=== PATIENT | female | born 1950 | race Caucasian/White ===

== ENCOUNTER 2018-01-28 13:31 | Emergency (ER) | payer MEDICARE, OTHER ==
[2018-01-28 13:36] VITALS: BP 193/77; PULSE 79; RESP 16; TEMP 98.3; O2SAT 98
--- NOTE | 2018-01-28 14:14 | RADRPT ---
EXAM DATE/TIME: 01/28/2018 13:54 [place] COMPARISON: No previous studies available for comparison. INDICATIONS : Heavy board fell on right lower leg today, injury anterior right lower leg appoximately 1/2 way betwe en knee and ankle MEDICAL HISTORY : None. SURGICAL HISTORY : None. ENCOUNTER: Initial ACUITY: 1 day PAIN SCORE: 10/10 LOCATION: Right tib/fib FINDINGS: Two view examination of the right tibia demonstrates no evidence of fracture or dislocation. Bony mi neralization is normal. Soft tissue laceration anteriorly. No foreign body. CONCLUSION: Soft tissue laceration, negative for fracture or foreign body. Niko Mckee MD FACR on January 28, 2018 at 14:11 Board Certified Radiologist. This report was verified electronically.
[2018-01-28] MEDS ORDERED: LEVO75TA3 PO (14:52)
[2018-01-28] MEDS ORDERED: ADVA250A INH (14:52)
[2018-01-28] MEDS ORDERED: LISI20TA PO (14:52)
[2018-01-28] MEDS ORDERED: LIDOCAINE 1%/EPINEPHrine 1:100,000 SOLN 20 ML VIAL INFIL ONE (15:00)
[2018-01-28] MEDS ORDERED: TETANUS/DIPHTHERIA TOXOID ADULT 0.5 ML VIAL IM ONE (15:00)
[2018-01-28] MEDS ORDERED: CEPH-460 PO (15:50)
--- NOTE | 2018-01-28 15:52 | PD ---
HPI Chief Complaint: Laceration/Skin Injury Time Seen by Provider: 14:48 Travel History International Travel<30 days: No Contact w/Intl Traveler<30days: No History of Present Illness HPI 68 year-old female presents to the ED for evaluation of right leg laceration and pain after a 4 x 4 fell on her leg just prior to arrival. Patient states pain is 2/10, worse when she pushes on it or walks. Denies loss of range of motion. Patient's was with her when it happened and he compressed the wound and elevated her leg while waiting for paramedics. When the paramedics got there, they dressed the wound and brought her to the ED. She is not on any blood thinners. Only history of hypertension and hypothyroidism. Unknown last tetanus. [facility] Social History Tobacco Use: No Allergies-Medications (Allergen,Severity, Reaction): Coded Allergies: codeine (Verified Allergy, Severe, 01/28/18) Reported Meds & Prescriptions Reported Meds & Active Scripts Active Keflex (Cephalexin) 500 Mg Capsule 500 Mg PO Q6H 7 Days Reported Advair Diskus Inh (Fluticasone-Salmeterol Inh) 250-50 Mcg/Blist Aer 1 Puff INH BID Rinse mouth after use. Lisinopril-Hctz 20-12.5 Mg Tab 1 Tab PO DAILY Levothyroxine (Levothyroxine Sodium) 75 Mcg Tab 75 Mcg PO DAILY Review of Systems Except as stated in HPI: all other systems reviewed are Neg Physical Exam Narrative GENERAL: Well-nourished, well-developed female no acute distress. Afebrile. Ambulatory. SKIN: Focused skin assessment warm/dry. There is an extremely large, approximately 20 cm L-shaped gaping laceration with significant adipose tissue sticking out of the wound on the right lower extremity. Nonbleeding. HEAD: Normocephalic. EYES: No scleral icterus. No injection or drainage. NECK: Supple, trachea midline. No JVD or lymphadenopathy. CARDIOVASCULAR: Regular rate and rhythm without murmurs, gallops, or rubs. RESPIRATORY: Breath sounds equal bilaterally. No accessory muscle use. MUSCULOSKELETAL: No cyanosis, or edema. 2+ dorsalis pedis pulse. Full range of motion of the right lower extremity. Strength 5/5 and equal in bilateral lower extremity's. Data Data Last Documented VS Vital Signs Date Time Temp Pulse Resp B/P (MAP) Pulse Ox O2 Delivery O2 Flow Rate FiO2 01/28/18 13:36 98.3 79 16 193/77 (115) 98 Orders Orders Tibia/Fibula (Ap/Lat) (01/28/18 ) Tetanus/Diphtheria Tox Adult (Tetanus/Di (01/28/18 15:00) Lidocai-Epi 1%-1:100,000 Inj (Xylocaine- (01/28/18 15:00) Ed Discharge Order (01/28/18 15:52) MDM Medical Decision Making Medical Screen Exam Complete: Yes Emergency Medical Condition: Yes Medical Record Reviewed: Yes Differential Diagnosis Laceration, abrasion, contusion, fracture, sprain, strain Narrative Course 68-year-old female presents to the emergency room for evaluation of right lower extremity pain and laceration after a large 4 x 4 fell on top of her just prior to arrival. Patient has been ambulatory. X-rays negative. There is a 20 cm L- shaped laceration with significant adipose tissue sticking out of the wound on the right anterior lower extremity. Right lower extremity is neurovascularly intact with 2+ dorsalis pedis pulse. She has full range of motion and 5/5 strength. The wound was thoroughly irrigated with 2 bottles of IrriMax and cleansed with Betadine. It was repaired with rizwan. Patient was informed that she will likely have chronic indentation on her marcelino because of displacement of adipose tissue. She was updated on tetanus. Patient discharged with prescription for Keflex and wound care instructions. Told to follow-up with a primary care physician or return to the emergency room for worsening symptoms. She understands and agrees to plan. Procedures Procedure Narrative LACERATION LOCATION: Right anterior, lower marcelino LENGTH: 20 cm NUMBER OF STITCHES/RIZWAN: 24 rizwan REPAIR: The area of the laceration was prepped with Betadine and sterilely draped. The laceration was infiltrated with 1% lidocaine with epinephrine. The wound was copiously irrigated and explored without evidence of foreign body , tendon injury or neurovascular injury. The wound was closed using staple gun. This was a single layer repair. A sterile dressing was applied. The patient was advised to keep the dressing clean and dry. Patient tolerated the procedure well. Diagnosis Primary Impression: Laceration of right lower leg Qualified Codes: S81.811A - Laceration without foreign body, right lower leg, initial encounter Referrals: Primary Care Physician Additional Instructions: Rest and drink plenty of fluids. Keep wound clean and dry. Change dressing in apply triple antibiotic ointment daily. Apply wraps around the leg for the first 5 days, then just a nonstick dressing. Take Keflex as directed, until gone. [place] need to be removed in 14 days. You may come here or see your primary care physician. Follow up with a primary care physician. Return to emergency room for worsening symptoms, as discussed. Med/Other Pt SpecificInfo: Prescription(s) given Scripts Cephalexin (Keflex) 500 Mg Capsule 500 MG PO Q6H for Infection for 7 Days, #28 CAP 0 Refills Prov: Yudith Cano MD 01/28/18 Disposition: 01 DISCHARGE HOME Condition: Stable Lcuia Wong January 28, 2018 15:52
== END 2018-01-28 16:02 | disposition home or self-care (01) ==
LOC: NEPK 13:31
DX: S81.811A Laceration without foreign body, right lower leg, initial encounter (principal); I10 Essential (primary) hypertension; E03.9 Hypothyroidism, unspecified; W20.8XXA Other cause of strike by thrown, projected or falling object, initial encounter; Z23 Encounter for immunization
CPT/HCPCS: 12005; 73590; 90471; 90714

== ENCOUNTER 2018-03-15 13:21 | Day surgery (SDC) | payer MEDICARE ==
[~2018-03-15] VITALS: Ht 158.8 cm; Wt 58.5 kg
[~2018-03-15 13:21] MED LIST: ADVA250A INH; CEPH-460 PO; DEXAMETHASONE SOD PHOS 4 MG/ML VIAL IV ONE; LEVO75TA3 PO; LIDOCAINE HCL 1% PF 5 ML SYRINGE OTHER ONE; LISI20TA PO; ONDANSETRON HCL 4 MG/2 ML VIAL IV ONE; PROPOFOL 200 MG/20 ML AMP IV ONE
[2018-03-15] MEDS ORDERED: CHLORHEXIDINE GLUCONATE 2 % 1 PACK (2 CLOTHS) TOPICAL PRN (14:15)
[2018-03-15] MEDS ORDERED: SODIUM CHLORID 0.9% 500 ML IV PRN (14:15)
[2018-03-15] MEDS ORDERED: METOPROLOL TARTRATE 25 MG TAB PO PRN (14:15)
[2018-03-15] MEDS ORDERED: LACTATED RINGER'S 1000 ML IV PRN (14:15)
[2018-03-15] MEDS ORDERED: ceFAZolin 2 GM PREMIX 50 ML IV SCH (14:30)
[2018-03-15] MEDS ORDERED: ACETAMINOPHEN 1000 MG/100 ML 100 ML IV SCH (14:30)
[2018-03-15] MEDS: POVIDONE IODINE 5% (ANTISEPSIS KIT) 4 APPLICATIONS EACH NARE PRN ×2 (14:48→14:54)
[2018-03-15] MEDS ORDERED: BUPIVACAINE/EPINEPHRINE 0.5% PF 30 ML VIAL ONE (16:39)
[2018-03-15] MEDS ORDERED: LIDOCAINE 1%/EPINEPHrine 1:100,000 SOLN 30 ML VIAL ONE (16:39)
[2018-03-15] MEDS ORDERED: BUPIVACAINE LIPOSOME PF 1.3% 20 ML VIAL ONE (17:24)
[2018-03-15] MEDS ORDERED: MIDAZOLAM HCL 2 MG/2 ML VIAL ONE (17:59)
--- NOTE | 2018-03-15 18:18 | PD.OP ---
cc: Guy Bernal MD Operative Report Date of Surgery: Mar 15, 2018 Preoperative Diagnosis: Chronic wound anterior right lower extremity Postoperative Diagnosis: Chronic wound anterior right lower extremity Procedure: Debridement of right lower extremity wound with placement of wound VAC Anesthesia: General Surgeon: Guy Bernal Reporter Anchor(s): Domonique Lyons, MS 3 Operation and Findings: Operative procedure: The patient brought to the operating room after satisfactory general anesthesia been obtained, the right lower extremity is prepped and draped in usual sterile fashion. The wound was seen to be 6 x 7 cm and had a relatively dense eschar with a small amount of granulation tissue around the edges. The eschar was grasped with DeBakey forceps and dissected free sharply. The entire wound was debrided back to bleeding tissue which was then controlled with cautery as needed. After cleaning the wound as much as possible in controlling the overt bleeding, a wound VAC sponge was cut to the appropriate shape. 1.3 Exparel was infiltrated into the surrounding tissues for local anesthesia and a small amount of placed on the wound VAC sponge as well. The sponge was then covered with the sterile dressing and the suction was connected initially to wall suction and then to the portable wound VAC at - 125 mmHg. Hemostasis was checked for and found to be satisfactory. The wound VAC was properly engaged with suction. The patient was then awakened and taken from the operating room, in satisfactory condition, having tolerated the procedure without problem. Estimated blood loss was less than 15 mL's. The instrument, sponge, needle counts were reported as being correct 2 at the end of the procedure. Guy Bernal MD Mar 15, 2018 18:18
[2018-03-15] MEDS ORDERED: KETO10 PO ×2 (18:30→18:31)
[2018-03-15] MEDS ORDERED: KETOROLAC TROMETHAMINE 30 MG/ML (IVP) VIAL IV PUSH ONE (19:00)
[2018-03-15] MEDS ORDERED: ONDANSETRON HCL 4 MG/2 ML VIAL IV PUSH PRN (19:00)
[2018-03-15] MEDS ORDERED: SODIUM CHLORIDE 0.9% FLUSH 10 ML FLUSH IV FLUSH PRN (19:00)
[2018-03-15 19:30] VITALS: BP 130/65; PULSE 54; RESP 20; TEMP 97.6; O2SAT 100
[2018-03-15] MEDS ORDERED: DO NOT ADM ANY ANTICOAGULANT DRUGS PRN (20:00)
[2018-03-15] MEDS ORDERED: SODIUM CHLORIDE 0.9% FLUSH 10 ML FLUSH IV FLUSH SCH (21:00)
== END 2018-03-15 19:30 | disposition home or self-care (01) ==
LOC: HSDC 13:21
PROVIDERS: ATTEND Surgery
DX: S81.801A Unspecified open wound, right lower leg, initial encounter (principal)
CPT/HCPCS: 00400; 11042; 11045; C9290; J0131; J0690; J2250; J7120; J1100; J2405